=== PATIENT | male | born 1940 | race Caucasian/White ===

== ENCOUNTER 2022-04-22 11:07 | Inpatient (IN) | payer MEDICARE, OTHER ==
[2022-04-22] MEDS ORDERED: Sodium Chloride 0.9% 1,000 ML ONE (11:13)
[2022-04-22] MEDS ORDERED: Sodium Chloride 0.9% 1,000 ML IV ONE ×2 (11:38→15:38)
[2022-04-22] MEDS: Iopamidol 755 Mg/ML 100 ML Bottle IVPUSH ONE (11:45)
[2022-04-22] MEDS: Pantoprazole 40 MG in Sodium Chloride 0.9% 100 ML IV SCH ×3 (12:44→21:47)
[2022-04-22] MEDS ORDERED: Insulin Regular, Human 100 Units/ML 3 ML Vial IV ONE (13:18)
[2022-04-22] MEDS ORDERED: Glucagon,Human Recombinant 1 MG Vial IM PRN (13:18)
[2022-04-22] MEDS ORDERED: 50% Dextrose in Water 50 ML Syringe IVPUSH PRN (13:18)
[2022-04-22] MEDS ORDERED: Lactated Ringers 1,000 ML IV SCH (13:30)
[2022-04-22 14:16] LABS: PTT,PARTIAL THROMBOPLSTIN TIME 23.2 SEC (23.2-32.3)
[2022-04-22] MEDS ORDERED: Acetaminophen 325 MG Tab PO PRN (14:44)
[2022-04-22] MEDS ORDERED: Docusate Sodium 100 MG Cap PO PRN (14:44)
[2022-04-22] MEDS ORDERED: Magnesium Hydroxide 400 MG/5 ML Susp 30 ML Cup PO PRN (14:44)
[2022-04-22] MEDS ORDERED: Acetaminophen/HYDROcodone 325-5 MG Tab PO PRN (15:18)
[2022-04-22] MEDS: Acetaminophen/HYDROcodone 325-5 MG Tab PO PRN (15:35)
[2022-04-22] MEDS ORDERED: Ondansetron 4 MG/2 ML SDV IVPUSH PRN (15:50)
[2022-04-22] MEDS ORDERED: cefTRIAXone 1 GM Vial IVPUSH ONE (15:50)
[2022-04-22] MEDS: Sucralfate Suspension 1 GM/10 ML Cup PO SCH ×2 (16:40→19:56)
[2022-04-22] MEDS: Tamsulosin 0.4 MG Cap.ER PO SCH (19:56)
[2022-04-22] MEDS ORDERED: amLODIPine 10 MG Tab PO SCH (20:00)
[2022-04-22] MEDS: Formoterol/Mometasone 200-5 MCG 8.8 GM Inhaler IH SCH (20:00)
[2022-04-22] MEDS: LORazepam 0.5 MG Tab PO SCH (20:16)
[2022-04-22] MEDS ORDERED: Sodium Chloride 0.9% 250 ML IV STA (20:40)
[2022-04-22] MEDS ORDERED: diphenhydrAMINE 50 MG/ML SDV IVPUSH ONE (21:03)
[2022-04-23] MEDS ORDERED: Sodium Chloride 0.9% 250 ML IV STA (01:45)
[2022-04-23] MEDS: Pantoprazole 40 MG in Sodium Chloride 0.9% 100 ML IV SCH ×4 (02:50→23:22)
[2022-04-23] MEDS: Sucralfate Suspension 1 GM/10 ML Cup PO SCH ×4 (05:25→19:50)
[2022-04-23] MEDS: Finasteride 5 MG Tab PO SCH (07:46)
[2022-04-23] MEDS ORDERED: Furosemide 20 MG/2 ML VIAL IVPUSH ONE (11:47)
[2022-04-23] MEDS: Metoprolol Tartrate 50 MG Tab PO SCH ×2 (13:57→19:48)
[2022-04-23] MEDS ORDERED: cefTRIAXone 1 GM Vial IVPUSH SCH (14:00)
[2022-04-23] MEDS ORDERED: Sodium Chloride 0.9% 250 ML IV SCH (14:45)
[2022-04-23] MEDS: cefTRIAXone 1 GM Vial IVPUSH SCH (15:05)
[2022-04-23] MEDS: Tamsulosin 0.4 MG Cap.ER PO SCH (19:48)
[2022-04-23] MEDS: Acetaminophen/HYDROcodone 325-5 MG Tab PO PRN (19:49)
[2022-04-23] MEDS: LORazepam 0.5 MG Tab PO SCH (20:16)
[2022-04-23] MEDS: Formoterol/Mometasone 200-5 MCG 8.8 GM Inhaler IH SCH (20:17)
[2022-04-24] MEDS: Pantoprazole 40 MG in Sodium Chloride 0.9% 100 ML IV SCH (04:33)
[2022-04-24] MEDS: Sucralfate Suspension 1 GM/10 ML Cup PO SCH ×4 (06:18→20:27)
[2022-04-24] MEDS: Finasteride 5 MG Tab PO SCH (07:25)
[2022-04-24] MEDS: Metoprolol Tartrate 50 MG Tab PO SCH ×2 (09:06→20:25)
[2022-04-24] MEDS: Pantoprazole 40 MG Vial IVPUSH SCH ×2 (12:10→20:53)
[2022-04-24] MEDS: cefTRIAXone 1 GM Vial IVPUSH SCH (15:34)
[2022-04-24] MEDS: Tamsulosin 0.4 MG Cap.ER PO SCH (20:26)
[2022-04-24] MEDS: LORazepam 0.5 MG Tab PO SCH ×2 (20:26→20:37)
[2022-04-24] MEDS: Formoterol/Mometasone 200-5 MCG 8.8 GM Inhaler IH SCH (20:27)
[2022-04-24] MEDS: Acetaminophen/HYDROcodone 325-5 MG Tab PO PRN (20:31)
[2022-04-25] MEDS: Sucralfate Suspension 1 GM/10 ML Cup PO SCH ×4 (06:15→19:46)
[2022-04-25] MEDS: Finasteride 5 MG Tab PO SCH (07:31)
[2022-04-25] MEDS: Metoprolol Tartrate 50 MG Tab PO SCH ×2 (07:31→19:47)
[2022-04-25] MEDS: Pantoprazole 40 MG Vial IVPUSH SCH ×2 (08:03→20:26)
[2022-04-25] MEDS ORDERED: Sodium Chloride 0.9% 250 ML IV SCH (09:00)
[2022-04-25] MEDS: Tamsulosin 0.4 MG Cap.ER PO SCH (19:47)
[2022-04-25] MEDS: Formoterol/Mometasone 200-5 MCG 8.8 GM Inhaler IH SCH (19:48)
[2022-04-25] MEDS: LORazepam 0.5 MG Tab PO SCH (22:25)
[2022-04-26] MEDS ORDERED: Lactated Ringers 1,000 ML IV SCH (06:30)
[2022-04-26] MEDS ORDERED: Benzocaine 20% Oral Spray 59.2 ML Canister MUCMEM ONE (07:15)
[2022-04-26] MEDS ORDERED: Meperidine PF 25 MG/ML SDV IVPUSH ONE (07:19)
[2022-04-26] MEDS ORDERED: Midazolam 1 MG/ML 2 ML SDV IVPUSH ONE ×2 (07:20→07:21)
[2022-04-26 08:27] VITALS: BP 126/78; PULSE 75
[2022-04-26] MEDS: Finasteride 5 MG Tab PO SCH (08:27)
[2022-04-26] MEDS: Sucralfate Suspension 1 GM/10 ML Cup PO SCH ×2 (08:27→11:33)
[2022-04-26] MEDS: Pantoprazole 40 MG Vial IVPUSH SCH (08:27)
[2022-04-26] MEDS: Metoprolol Tartrate 50 MG Tab PO SCH (08:27)
[2022-04-26] MEDS ORDERED: LORazepam 0.5 MG Tab PO PRN (08:45)
== END 2022-04-26 13:09 | disposition home or self-care (01) | DRG 378 ==
LOC: CC.ED 11:07 → UNDOADMIN 12:19 → CC.MS 12:19 → UNDOADMIN 12:29 → CC.MS 14:44
PROVIDERS: ADMIT Nurse Practitioner Family; ATTEND Nurse Practitioner Family
PROC: 30233K1 Transfusion of Nonautologous Frozen Plasma into Peripheral Vein, Percutaneous Approach (ICD-10-PCS; principal; 2022-04-22)
PROC: 30233N1 Transfusion of Nonautologous Red Blood Cells into Peripheral Vein, Percutaneous Approach (ICD-10-PCS; 2022-04-22)
PROC: 0DJ08ZZ Inspection of Upper Intestinal Tract, Via Natural or Artificial Opening Endoscopic (ICD-10-PCS; 2022-04-26)
DX: K92.1 Melena (principal); K29.01 Acute gastritis with bleeding; D62 Acute posthemorrhagic anemia; Z92.21 Personal history of antineoplastic chemotherapy; M47.816 Spondylosis without myelopathy or radiculopathy, lumbar region; G89.29 Other chronic pain; M54.9 Dorsalgia, unspecified; N40.0 Benign prostatic hyperplasia without lower urinary tract symptoms; Z85.118 Personal history of other malignant neoplasm of bronchus and lung; N42.9 Disorder of prostate, unspecified; Z79.899 Other long term (current) drug therapy
CPT/HCPCS: 36415; 36430; 71045; 71046; 74177; 80053; 82272; 82947; 83735; 85025; 85027; 85610; 85730; 86850; 86870; 86900; 86901; 86920; 86922; 87081; 87338; 93005; 96360; 99223; 99232; 99233; 99238; 99285-25; A9270-GY; C9113; J0696; J1200; J1642; J1815-GY; J1940; J2175; J2250; J7030; J7050; J7120; P9016; P9017; Q9967

== ENCOUNTER 2022-05-09 23:40 | Observation (INO) | payer MEDICARE, OTHER ==
[2022-05-10] MEDS: Sodium Chloride 0.9% 250 ML IV SCH (01:04)
[2022-05-10] MEDS ORDERED: Ondansetron 4 MG/2 ML SDV IV PRN (02:23)
[2022-05-10] MEDS ORDERED: Pantoprazole 40 MG in Sodium Chloride 0.9% 100 ML IV SCH (02:45)
[2022-05-10] MEDS: Pantoprazole 40 MG Vial IVPUSH SCH (03:42)
[2022-05-10] MEDS ORDERED: Non-Formulary Medication 1 Each (Dutasteride [Avodart] 0.5 MG Cap) PO SCH (08:00)
[2022-05-10] MEDS ORDERED: DUTASTERIDE 0.5 MG PO SCH (11:06)
[2022-05-10] MEDS: DUTASTERIDE 0.5 MG PO SCH (11:44)
[2022-05-10 12:07] VITALS: BP 132/60; PULSE 106
[2022-05-10] MEDS ORDERED: LORAZEPAM 1 MG PO PRN ×2 (13:07→20:00)
[2022-05-10] MEDS ORDERED: FORMOTEROL AD INH SCH (20:00)
[2022-05-10] MEDS ORDERED: BUDESONIDE INH SCH (20:00)
[2022-05-10] MEDS ORDERED: Non-Formulary Medication 1 Each (Amlodipine [Norvasc] 5 MG Tablet) PO SCH (20:00)
== END 2022-05-10 15:08 ==
LOC: CC.ED 23:40 → CC.MS 05-10 02:37 → UNDOADMOB 05-10 02:42 → CC.MS 05-10 02:42
PROVIDERS: ADMIT Nurse Practitioner Family; ATTEND Nurse Practitioner Family
DX: K92.2 Gastrointestinal hemorrhage, unspecified (principal); R19.5 Other fecal abnormalities; E87.5 Hyperkalemia; K29.70 Gastritis, unspecified, without bleeding; I10 Essential (primary) hypertension; Z98.890 Other specified postprocedural states; Z79.899 Other long term (current) drug therapy; Z20.822 Contact with and (suspected) exposure to COVID-19
CPT/HCPCS: 36415; 36430; 80053; 82272; 83735; 83880; 85025; 86850; 86900; 86901; 86920; 86922; 93005; 93010; 96360; 96361; 96374; 99236; 99285-25; A9270-GY; C9113; G0378; J1642; J7050; P9016; U0002

== ENCOUNTER 2022-10-06 10:19 | Inpatient (IN) | payer MEDICARE, OTHER ==
[2022-10-06] MEDS ORDERED: Albuterol/Ipratropium 3.0-0.5 MG/3 ML Neb Soln NEB ONE (10:40)
[2022-10-06] MEDS: Sodium Chloride 0.9% 1,000 ML IV SCH ×2 (10:49→21:14)
[2022-10-06] MEDS ORDERED: Azithromycin 500 MG in Sodium Chloride 0.9% 250 ML IV STA (11:27)
[2022-10-06] MEDS ORDERED: cefTRIAXone 1 GM Vial IVPUSH ONE (11:27)
[2022-10-06 11:41] LABS: CORONAVIRUS COVID-19 NAA NEGATIVE (NEGATIVE); RESPIRATORY SYNCYTIAL VIR NAA NEGATIVE (NEGATIVE)
[2022-10-06] MEDS ORDERED: Polyethylene Glycol 3350 Powder 17 GM Packet PO PRN (12:27)
[2022-10-06] MEDS ORDERED: Acetaminophen 325 MG Tab PO PRN (12:27)
[2022-10-06] MEDS ORDERED: Ondansetron 4 MG Tab.DIS PO PRN (12:27)
[2022-10-06] MEDS ORDERED: Ondansetron 4 MG/2 ML SDV IV PRN (12:27)
[2022-10-06] MEDS ORDERED: Docusate Sodium 100 MG Cap PO PRN (12:27)
[2022-10-06] MEDS ORDERED: Acetaminophen/HYDROcodone 325-5 MG Tab PO PRN (12:39)
[2022-10-06] MEDS ORDERED: Magnesium Hydroxide 400 MG/5 ML Susp 30 ML Cup PO PRN (12:39)
[2022-10-06] MEDS: Albuterol/Ipratropium 3.0-0.5 MG/3 ML Neb Soln NEB SCH ×2 (16:00→19:51)
[2022-10-06] MEDS: Acetaminophen/HYDROcodone 325-5 MG Tab PO PRN (18:42)
[2022-10-06] MEDS: LORazepam 0.5 MG Tab PO SCH (19:50)
[2022-10-06] MEDS: Tamsulosin 0.4 MG Cap.ER PO SCH (19:51)
[2022-10-06] MEDS: amLODIPine 10 MG Tab PO SCH (19:52)
[2022-10-06] MEDS ORDERED: FORMOTEROL AD INH SCH (20:00)
[2022-10-06] MEDS ORDERED: BUDESONIDE INH SCH (20:00)
[2022-10-06] MEDS ORDERED: Albuterol/Ipratropium 3.0-0.5 MG/3 ML Neb Soln NEB SCH (20:00)
[2022-10-07] MEDS: Pantoprazole 40 MG Tab.CR PO SCH (06:30)
[2022-10-07] MEDS: Sodium Chloride 0.9% 1,000 ML IV SCH (06:30)
[2022-10-07] MEDS: Albuterol/Ipratropium 3.0-0.5 MG/3 ML Neb Soln NEB SCH ×4 (07:45→19:17)
[2022-10-07] MEDS: Finasteride 5 MG Tab PO SCH (07:47)
[2022-10-07] MEDS: Azithromycin 500 MG in Sodium Chloride 0.9% 250 ML IV SCH (07:51)
[2022-10-07] MEDS: cefTRIAXone 1 GM Vial IVPUSH SCH (07:51)
[2022-10-07] MEDS ORDERED: cefTRIAXone 1 GM Vial IVPUSH SCH (08:00)
[2022-10-07] MEDS ORDERED: Azithromycin 500 MG in Sodium Chloride 0.9% 250 ML IV SCH (08:00)
[2022-10-07] MEDS: Acetaminophen/HYDROcodone 325-5 MG Tab PO PRN (15:09)
[2022-10-07] MEDS: LORazepam 0.5 MG Tab PO SCH (19:13)
[2022-10-07] MEDS: Tamsulosin 0.4 MG Cap.ER PO SCH (19:14)
[2022-10-07] MEDS: amLODIPine 10 MG Tab PO SCH (19:17)
[2022-10-08] MEDS: Finasteride 5 MG Tab PO SCH (07:32)
[2022-10-08] MEDS: Pantoprazole 40 MG Tab.CR PO SCH (07:32)
[2022-10-08] MEDS: Albuterol/Ipratropium 3.0-0.5 MG/3 ML Neb Soln NEB SCH ×4 (08:01→19:44)
[2022-10-08] MEDS: cefTRIAXone 1 GM Vial IVPUSH SCH (08:02)
[2022-10-08] MEDS: Azithromycin 500 MG in Sodium Chloride 0.9% 250 ML IV SCH (08:02)
[2022-10-08] MEDS: Tamsulosin 0.4 MG Cap.ER PO SCH (19:44)
[2022-10-08] MEDS: LORazepam 0.5 MG Tab PO SCH (19:44)
[2022-10-08] MEDS: amLODIPine 10 MG Tab PO SCH (19:46)
[2022-10-09] MEDS: Pantoprazole 40 MG Tab.CR PO SCH (07:34)
[2022-10-09] MEDS: cefTRIAXone 1 GM Vial IVPUSH SCH (07:35)
[2022-10-09] MEDS: Albuterol/Ipratropium 3.0-0.5 MG/3 ML Neb Soln NEB SCH ×2 (07:35→11:28)
[2022-10-09] MEDS: Finasteride 5 MG Tab PO SCH (07:35)
[2022-10-09] MEDS: Azithromycin 500 MG in Sodium Chloride 0.9% 250 ML IV SCH (07:35)
[2022-10-09 08:20] VITALS: BP 135/57; PULSE 103
== END 2022-10-09 12:18 | disposition home or self-care (01) | DRG 193 ==
LOC: CC.ED 10:19 → CC.MS 12:10
PROVIDERS: ADMIT Nurse Practitioner Family; ATTEND Nurse Practitioner Family
DX: J18.9 Pneumonia, unspecified organism (principal); J96.91 Respiratory failure, unspecified with hypoxia; Z20.822 Contact with and (suspected) exposure to COVID-19; M54.9 Dorsalgia, unspecified; G89.29 Other chronic pain; I10 Essential (primary) hypertension; Z79.899 Other long term (current) drug therapy; Z85.118 Personal history of other malignant neoplasm of bronchus and lung; Z92.21 Personal history of antineoplastic chemotherapy
CPT/HCPCS: 0241U; 36415; 71045; 80048; 80053; 81003; 83735; 84484; 85025; 86140; 87040; 87070; 87205; 93005; 93010; 94640; 96361; 96365; 96375; 97161-GP; 99285-25; A9270-GY; J0456; J0696; J1642; J7030; J7050; J7620-GY

== ENCOUNTER 2025-06-21 09:40 | Emergency (ER) | payer MEDICARE, OTHER ==
[2025-06-21 10:33] LABS: APPEARANCE,URINE CLOUDY (CLEAR); GLUCOSE,URINE NEGATIVE (NEGATIVE); OCCULT BLOOD,URINE MODERATE (NEGATIVE)
[2025-06-21 10:40] VITALS: BP 132/71; PULSE 108
[2025-06-21 10:40] LABS: WBC CLUMPS,URINE MANY /HPF (NOT SEEN)
== END 2025-06-21 11:08 | disposition home or self-care (01) ==
LOC: CC.ED 09:40
DX: N39.0 Urinary tract infection, site not specified (principal); I10 Essential (primary) hypertension; Z79.899 Other long term (current) drug therapy; Z87.891 Personal history of nicotine dependence
CPT/HCPCS: 81001; 87086; 99283; 99284